=== PATIENT | female | born 1990 | race Caucasian/White ===

== ENCOUNTER 2021-11-28 06:07 | Inpatient (IN) | payer BC, SELFPAY ==
[2021-11-28] VITALS (29 sets, daily range): BP systolic 116–151; BP diastolic 61–97; PULSE 62–108; RESP 16–20; TEMP 36.3–36.7; O2SAT 96–99; BMI 43.6
[2021-11-28 07:55] LABS: Hemoglobin* 12.4 gm/dL (12.0-16.0)
[2021-11-28] MEDS: LACTATED RINGERS 1000 ML 1,000 ML 125 ML IV ×2 (08:01→15:50)
[2021-11-28] MEDS: OXYTOCIN 30 unit/500 ML in NS 30 UNIT/500 ML BAG IVPB (08:03)
[2021-11-28 09:10] LABS: SARS PCR* Negative SARS-CoV-2 (Negative)
--- NOTE | 2021-11-28 09:15 | W.PM.LDBA ---
Subjective History of Present Illness Narrative: Patient is being admitted to Labor and Delivery for IOL for diet controlled GDM with poor glycemic control.? She is a 31 year old at 39 Weeks, 2 Days gestation.? Her full history and physical was dictated by Dr. KEBEDE on 11/21/2021.? Please see this for details.? G1, P0. EDC based on ultrasound : [place]. Baby: Boy Neymar 1. Achieved with letrozole; h/o PCOS: Assumed GDM (see 3hr GTT) * On metformin. Discontinued on 05/31/21. * Early 1hr GTT at 20 wks 07/15/21: 110 * 28 wk 1h GTT 09/16/2021: 176 * 3 hr GTT: 09/20/21 F 83 (70-95), 1hr 180 (70-180), 2hr 182 (70-155), 3hr 86(70-95) * 09/30/2021: Nutrition referral, lancets, glucometer, blood sugar measuring strips. * USN 32wks: 10/14/2021: Vtx. SDP 7.1cm. EFW 2053gm, 4 lb 8 oz, 66%. BPD 78%, HC 57%, AC 84%, FL 23%. * ultrasound for EFW at 36 weeks 11/11/21: Vtx. SDP 6.2cm. EFW 2874 g, 6 lb 5 oz, 57%. BPD 56%, HC 66%, AC 79%, FL 12%. 2. Hypothyroidism: 50 mcg levothyroxine daily 04/30: TSH 2.03 07/15/2021: TSH: 4.53. Increased levothyroxine to 75mcg daily. Recheck TSH w/ reflex FT4 at her 24 week visit. Goal: TSH <2.5. 08/12/2021: TSH 2.620. Increase levothyroxine to 88 mcg daily. Repeat TSH and free T4 at 28 weeks. 09/16/21: TSH 2.53. Continue 88mcg levothyroxine daily. Recheck TSH w/ reflex FT4 at her 6wk pp visit. 3. History of abnormal Pap smears: 2014, colp, no cryotherapy or cone biopsy. last pap smear 09/02/2018; normal Pap at 6wk pp visit. 4. Obesity (BMI 40.5) 04/30: A1C 5.1 Recommended baby ASA 5. Measuring large for dates at 32 weeks. Growth u/s ordered. 57% at 36 weeks OB - H&P: Exam Physical Exam: Vital signs: Temp Pulse Resp BP Pulse Ox 98.1 F 90 16 133/85 99 11/28/21 08:09 11/28/21 08:09 11/28/21 08:09 11/28/21 08:11/28/21 06:34 Narrative: Vitals per EMR? Psychiatric:? Alert and oriented x3? HEENT:? Normocephalic, atraumatic? Neck:? Supple Lungs:? Clear to auscultation bilaterally? Heart:? Regular rate and rhythm, no murmur, rub or gallop? Abdomen:? Soft, nontender, and gravid? Extremities:? No edema or erythema? Pelvic:? SVE: []cm/[]%/-[]? Membrane status:? []? presentation:? []? FHT:? Moderate Variability.? Positive Accels.? No Decels. Baseline [].? Jolly:? Ctx Q[]min? Constitutional: Constitutional: no acute distress Detailed Labor and Delivery Exam: Patient Gravid: yes Dilation (cm): 3 (SVE per RN) Effacement (%): 90 Contraction frequency (min): 5 (5-11 min) Tachysystole: No Contraction intensity: Mild (pt denies feeling) Fetus (Single): Heart Rate Baseline: 150 Monitor Accelerations: Present Monitor Decelerations: None Residential Variability: Moderate (11-25) (6-25) OB - Problem Based A/P Additional Plan (1) : Problem details: See above Status: Acute (2) Gestational diabetes: Status: Acute Plan ASSESSMENT:? at 38.3 weeks gestation? GBS negative? GDM diet controlled. ? ?? PLAN:? 1. Greater than 50% of blood sugars have been elevated in the last week so decision was made for IOL. 2. Reviewed risks and benefits of IOL with Pitocin. Plan for Pitocin IOL was made with the patient in the clinic. Patient agreeable with this plan.?? 3. Candidate for analgesia of choice. Planning unmedicated .?Encouraged movement and position changes. 4. Monitor blood pressures. Consider labs if continue to be elevated.? 5. Anticipate ? 6. Pitocin induction per protocol 7. Monitoring per policy? ? Delivery/Labor/Induction Plan Plan: induction Induction method: per pitocin protocol
--- NOTE | 2021-11-28 13:19 | PM.OBDSVD1 ---
DS: Providers Provider Date of admission: 11/28/21 06:07 Primary care physician: Renuka Camejo MD Admitting Clinician: Kristine Maxwell CNM Attending Physician on discharge: Yolanda Escalona MD DS: Diagnosis Discharge Diagnosis (1) : Status: Acute Problem details: See above (2) Gestational diabetes: Status: Acute Exam Const: Vital Signs, click to edit/add: Vital Signs - 24 hr 11/28/21 06:24 11/28/21 06:28 11/28/21 06:29 Temperature Pulse Rate 107 H Respiratory Rate Blood Pressure 137/92 H Pulse Oximetry 99 99 11/28/21 06:34 11/28/21 07:14 11/28/21 08:09 Temperature 98.1 F Pulse Rate 94 90 Respiratory Rate 16 Blood Pressure 122/81 133/85 Pulse Oximetry 99 11/28/21 09:49 11/28/21 10:01 11/28/21 11:29 Temperature Pulse Rate 90 94 Respiratory Rate Blood Pressure 131/85 135/91 H Pulse Oximetry 96 11/28/21 12:28 Temperature Pulse Rate 89 Respiratory Rate Blood Pressure 130/87 Pulse Oximetry OB - DS: Summary Hospital Course Hospital Course: The patient is a 31 year old G [] P [] at [] weeks gestation that was admitted to the Center on 11/28/21 for []. She had an [uncomplicated/complicated] [vaginal/] delivery. She delivered a viable [male/female] . She is [breast/bottle] feeding. the patient has done well. Time Spent with Patient Time attestation: Total time spent providing and/or coordinating discharge services: Discharge Plan Discharge Date of Admission: 11/28/21 06:07 Attending Physician on Admission: Yolanda Escalona Primary Care Provider: Renuka Camejo Discharge Medications: No Action aspirin 81 mg tablet,chewable 81 mg PO DAILY 0RF cetirizine 10 mg tablet 10 mg PO DAILY 0RF prenat.vits,deneen,anu-nwzj-sanvf Tablet 1 tab PO QDAY 0RF (DME) Diabetic Test Strips Misc See Rx Instructions .ROUTE 0RF Rx Instructions: DISPENSE TEST STRIPS COVERED BY PT INSURANCE. (DME) diabetic supplies, miscellan. Misc See Rx Instructions .ROUTE 0RF Rx Instructions: DISPENSE METER COVERED BY PT INSURANCE. (DME) diabetic supplies, miscellan. Misc See Rx Instructions .ROUTE 0RF Rx Instructions: DISPENSE LANCETS COVERED BY PT INSURANCE. levothyroxine 88 mcg tablet 88 mcg PO DAILY 0RF Referrals: Renuka Camejo MD [Primary Care Provider] -
[2021-11-28 13:24] LABS: Hematocrit 38.4 % (33.0-51.0); Hemoglobin* 12.4 gm/dL (12.0-16.0); Mean Corpuscular HGB Conc 32 gm/dL (32-36); Mean Corpuscular Hemoglobin 28 pg (26-34); Mean Corpuscular Volume 86 fL (80-100); Platelet Count* 308 K/uL (140-440); Red Blood Count 4.49 m/uL (4.00-5.20); White Blood Count* 10.72 K/uL (4.50-11.00)
[2021-11-28 13:35] LABS: Slide Review Reflex No
[2021-11-28 13:52] LABS: Alanine Aminotransferase* 14 U/L (4-35); Aspartate Amino Transferase* 21 U/L (12-35); Blood Urea Nitrogen* 8 mg/dL (5-24); Creatinine* 0.6 mg/dL (0.5-1.5); Est. Creatinine Clearance* 117.31; Estimated Glomerular Filt Rate 122.99
[2021-11-28 14:08] LABS: Glucose, Point-of-Care* 86 mg/dl (60-115)
[2021-11-28 14:10] LABS: Total Protein Urine 12 mg/dL
[2021-11-28] MEDS: ONDANSETRON 2 MG/ML inj 4 MG IV (17:07)
--- NOTE | 2021-11-28 18:10 | PM.OBPNL ---
Pain Control Time Seen by Provider: 16:25 Date Seen: 11/28/21 Pain control: tolerating well Contractions Monitor mode: External Contraction frequency: 5 (5-11 min) Contraction intensity: Mild (pt denies feeling) Pelvic Exam Dilation (cm): 4 Effacement (%): 90 Station: -1 Comments: slight BBOW Fetus (Single) Amniotic Membrane Status: AROM (16:30) status: Category l Assessment and Plan Pitocin rate (mU/min): 11 Assessment: prodromal labor and other (Two elevated BPs >90 systolic geater than 4 hours apart, urine P/C ratio 0.3. Meets criteria for mild pre-eclampsia....) Comments: Amniotomy performed. Continue current management.
--- NOTE | 2021-11-28 18:16 | PM.OBPNL ---
Pain Control Time Seen by Provider: 18:15 Date Seen: 11/28/21 Pain control: tolerating well Comments: Feeling increased discomfort with contractions, breathing through them at bedside. Contractions Monitor mode: External Contraction frequency: 2 (5-11 min) Contraction pattern: Regular Contraction intensity: Moderate (pt denies feeling) Pelvic Exam Dilation (cm): 5 Effacement (%): 100 Station: 0 Comments: IUPC and FSE placed. Fetus (Single) Amniotic Membrane Status: AROM (16:30) status: Category l Assessment and Plan Pitocin rate (mU/min): 11 Assessment: active labor Plan: continue present management
[2021-11-28] MEDS: 5 % DEXTROSE/0.9% SOD CHLORIDE 1,000 ML 125 ML IV (18:28)
[2021-11-28 19:30] LABS: Glucose, Point-of-Care* 87 mg/dl (60-115)
[2021-11-28 19:36] LABS: Glucose, Point-of-Care* 79 mg/dl (60-115)
[2021-11-28 19:37] LABS: Glucose, Point-of-Care* 71 mg/dl (60-115)
[2021-11-28 19:38] LABS: Glucose, Point-of-Care* 88 mg/dl (60-115)
[2021-11-28 21:30] LABS: Glucose, Point-of-Care* 128 mg/dl (60-115)
[2021-11-29] VITALS (28 sets, daily range): BP systolic 115–149; BP diastolic 66–94; PULSE 62–111; RESP 16–20; TEMP 36.4–36.7; O2SAT 97–99
--- NOTE | 2021-11-29 01:24 | PM.OBPRCVD ---
Procedure Delivery date: 11/29/21 Procedure Done: Global Events: GDMA1 and Pre-Eclampsia Induction method: per pitocin protocol Delivery augmentation: rupture of membranes Delivery monitor: external FHT, external uterine, internal FHT and internal uterine Route of delivery: Laceration description: Vaginal - 2nd Degree (Right vaginal sulcus with labial extension) Delivery repair: Chromic (3-0) Estimated blood loss (mL): 100 Anesthesia type: None Disposition: floor [place] Gender: Male presentation: vertex Placental Delivery Description: Spontaneous Cord Description: 3 Vessels and Nuchal Cord (tight, had to be cut on the perineum) OB Vag Delivery Procedures Additional Procedures Procedure Details: Patient is a 33 year-old admitted on Nov 25, 2021 at 23:40 at 39 Weeks, 2 Days gestation for induction of labor secondary to GDMA1. Cervical exam on admission was 3 cm/50 % effaced/-2 station with membranes intact in vertex presentation. Contractions were occasional. heart rate demonstrated baseline 145 bpm with moderate variability, + accelerations, - decelerations; a category 1 tracing. Patient had 2 elevated BPs >90 diastolic greater than 4 hours apart, urine P/C ratio 0.3, meeting criteria for mild pre-eclampsia while in prodromal labor. AROM occurred at 1630 with clear fluid. Labor Analgesia: None Pitocin: Yes Labor onset: 1700 on 11/28/21 Complete: 2253 Pushin, on hands/knees heart tones during second stage were 120-140 baseline with moderate variability. Variable decelerations during the last few contractions before delivery. At 0026 on 11/29/21 a viable male delivered in vertex OA presentation over intact perineum via spontaneous vaginal delivery. there was a tight nuchal cord that had to be doubly clamped and cut on the perineum before delivery of the sholders. Infant was taken to the warmer for evaluation. Nose and mouth were bulb suctioned. weight pending. 5 at 1 minute, 7 at 5 minutes, and 8 at 10 minutes. Shoulder dystocia: no. Nuchal cord: yes. Placenta delivered spontaneously and complete at 0034 with a 3 vessel cord. Mother and infant were stable after delivery. Lacerations: Right vaginal sulcus, 2nd degree, with 1st degree labial extension, repaired with 3-0 chromic. Blood loss: 100 mL. Blood loss measurement type: QBL Sponge and needles counts are correct.
--- NOTE | 2021-11-29 01:44 | PM.OBDSVD1 ---
DS: Providers Provider Date of admission: 11/28/21 06:07 Primary care physician: Renuka Camejo MD Admitting Clinician: Kristine Maxwell CNM Attending Physician on discharge: Yolanda Escalona MD DS: Diagnosis Discharge Diagnosis (1) : Status: Acute Problem details: See above (2) Gestational diabetes: Status: Acute (3) White classification A1 gestational diabetes mellitus (GDM): Status: Acute Problem details: Sub optimally controlled. Advised she check fasting CBG on regular basis. (4) Hypothyroidism: Status: Acute Problem details: Continue current levothyroxine dose, recheck at visit. Exam Const: Vital Signs, click to edit/add: Vital Signs - 24 hr 11/28/21 06:24 11/28/21 06:28 11/28/21 06:29 Temperature Pulse Rate 107 H Respiratory Rate Blood Pressure 137/92 H Blood Pressure [Ri ght Arm] Pulse Oximetry 99 99 11/28/21 06:34 11/28/21 07:14 11/28/21 08:09 Temperature 98.1 F Pulse Rate 94 90 Respiratory Rate 16 Blood Pressure 122/81 133/85 Blood Pressure [Ri ght Arm] Pulse Oximetry 99 11/28/21 09:49 11/28/21 10:01 11/28/21 11:29 Temperature Pulse Rate 90 94 Respiratory Rate Blood Pressure 131/85 135/91 H Blood Pressure [Ri ght Arm] Pulse Oximetry 96 11/28/21 12:28 11/28/21 12:30 11/28/21 13:36 Temperature 97.6 F Pulse Rate 89 82 Respiratory Rate Blood Pressure 130/87 131/85 Blood Pressure [Ri ght Arm] Pulse Oximetry 11/28/21 14:43 11/28/21 14:50 11/28/21 15:57 Temperature 98.1 F Pulse Rate 83 81 Respiratory Rate Blood Pressure 121/80 134/84 Blood Pressure [Ri ght Arm] Pulse Oximetry 11/28/21 16:40 11/28/21 17:21 11/28/21 17:41 Temperature 98 F 97.8 F Pulse Rate 67 Respiratory Rate 16 Blood Pressure 139/85 Blood Pressure [Ri ght Arm] Pulse Oximetry 11/28/21 18:35 11/28/21 18:36 11/28/21 18:40 Temperature 97.9 F Pulse Rate 63 69 Respiratory Rate 20 Blood Pressure 151/85 H 150/97 H Blood Pressure [Ri ght Arm] Pulse Oximetry 11/28/21 19:30 11/28/21 19:33 11/28/21 20:29 Temperature 97.4 F L Pulse Rate 62 64 Respiratory Rate 18 Blood Pressure 150/81 H 133/81 Blood Pressure [Ri ght Arm] Pulse Oximetry 11/28/21 20:32 11/28/21 21:23 11/28/21 21:25 Temperature 97.9 F 97.5 F L Pulse Rate 70 Respiratory Rate 18 Blood Pressure 142/86 H Blood Pressure [Ri ght Arm] Pulse Oximetry 11/28/21 22:39 11/28/21 22:43 11/29/21 00:00 Temperature 98 F 98 F Pulse Rate 67 Respiratory Rate 18 20 Blood Pressure 116/61 Blood Pressure [Ri ght Arm] Pulse Oximetry 11/29/21 00:07 11/29/21 00:35 11/29/21 00:37 Temperature 97.9 F Pulse Rate 111 H 76 Respiratory Rate 20 Blood Pressure 132/66 149/75 H Blood Pressure [Ri ght Arm] 149/75 H Pulse Oximetry 11/29/21 00:50 11/29/21 01:05 11/29/21 01:20 Temperature 97.9 F Pulse Rate 84 77 75 Respiratory Rate 20 18 16 Blood Pressure 143/67 H 149/70 H 133/67 Blood Pressure [Ri ght Arm] 143/67 H 149/70 H 133/67 Pulse Oximetry 11/29/21 01:35 Temperature Pulse Rate 73 Respiratory Rate Blood Pressure 143/71 H Blood Pressure [Ri ght Arm] Pulse Oximetry OB - DS: Summary Hospital Course Hospital Course: The patient is a 31 year old G [] P [] at [] weeks gestation that was admitted to the Center on 11/28/21 for []. She had an [uncomplicated/complicated] [vaginal/] delivery. She delivered a viable [male/female] infant. She is [breast/bottle] feeding. the patient has done well. Gender: Male Time Spent with Patient Time attestation: Total time spent providing and/or coordinating discharge services: Discharge Plan Discharge Disposition: Home, Self-Care Date of Admission: 11/28/21 06:07 Attending Provider on Discharge: Kyle Dominguez Primary Care Provider: Renuka Camejo Condition: Stable Anticipated Discharge Date/Time: 12/01/21 12:12 Discharge Medications: New ibuprofen 600 mg Tablet 600 mg PO Q6H PRNQty: 30 0RF Continued cetirizine 10 mg tablet 10 mg PO DAILY 0RF prenat.vits,deneen,usj-wdwe-[id number] Tablet 1 tab PO QDAY 0RF levothyroxine 88 mcg tablet 88 mcg PO DAILY 0RF Discontinued aspirin 81 mg tablet,chewable 81 mg PO DAILY 0RF No Action (DME) Diabetic Test Strips Misc See Rx Instructions .ROUTE 0RF Rx Instructions: DISPENSE TEST STRIPS COVERED BY PT INSURANCE. (DME) diabetic supplies, miscellan. Misc See Rx Instructions .ROUTE 0RF Rx Instructions: DISPENSE METER COVERED BY PT INSURANCE. (DME) diabetic supplies, miscellan. Misc See Rx Instructions .ROUTE 0RF Rx Instructions: DISPENSE LANCETS COVERED BY PT INSURANCE. Discharge Orders: Discharge Order (Routine); Ordered 12/01/21 Ordered By: Kyle Dominguez Patient Education: OB Vaginal/Breast Feeding Activity Level: No Restrictions Discharge Diet: Regular Follow Up Appointments: Renuka Camejo MD [Primary Care Provider] - (Follow up at 2 weeks and again at 6 weeks in the [facility] - call [phone] to make appointments ) Forms: [email or web address] Inst[facility]
[2021-11-29] MEDS: LIDOCAINE 1 % PF 30 ML INJECTION (03:34)
[2021-11-29] MEDS: ACETAMINOPHEN 500 MG TABLET 1000 MG PO ×4 (04:35→23:01)
[2021-11-29 06:11] LABS: Glucose, Point-of-Care* 114 mg/dl (60-115)
[2021-11-29] MEDS: IBUPROFEN 600 MG TABLET PO ×3 (08:10→20:27)
[2021-11-29] MEDS: LEVOTHYROXINE 88 MCG TABLET PO (09:37)
[2021-11-29] MEDS: DOCUSATE SODIUM 100 MG CAPSULE PO (10:10)
[2021-11-30] VITALS (10 sets, daily range): BP systolic 122–131; BP diastolic 85–88; PULSE 75–95; RESP 16–18; TEMP 36.5–36.6; O2SAT 96–97
[2021-11-30] MEDS: IBUPROFEN 600 MG TABLET PO ×4 (02:41→23:26)
[2021-11-30 06:43] LABS: Glucose, Point-of-Care* 78 mg/dl (60-115)
[2021-11-30 07:17] LABS: Hemoglobin* 10.3 gm/dL (12.0-16.0)
[2021-11-30] MEDS: CETIRIZINE HCL 10 MG TABLET PO ×2 (07:18→19:56)
[2021-11-30] MEDS: ACETAMINOPHEN 500 MG TABLET 1000 MG PO ×3 (08:01→20:09)
[2021-11-30] MEDS: DOCUSATE SODIUM 100 MG CAPSULE PO (08:04)
[2021-11-30] MEDS: LEVOTHYROXINE 88 MCG TABLET PO (08:04)
--- NOTE | 2021-11-30 10:28 | PM.OBPNVD1 ---
OB - PN:Subj Subjective Time Seen by Provider: 10:28 Date Seen: 11/30/21 Interval history: Jennifer is PPD 1 from vaginal of 39 week 2 day male , after induction of labor for GDM A1. Second degree vaginal /right labial laceration repaired. EBL 100. , she feels well. Pain is controlled with ibuprofen and occasional acetaminophen. Lochia is decreasing, and without clots. She is voiding normally. Normal bowel activity. Her son is latching well. OB - PN: Obj Exam Physical Exam: Vital signs: Temp Pulse Resp BP Pulse Ox 97.7 F 84 16 122/88 96 11/30/21 08:01 11/30/21 07:58 11/30/21 07:58 11/30/21 07:58 11/30/21 07:58 Constitutional: Constitutional: no acute distress Routine Respiratory Exam: Comments: Normal respiratory effort. No cough or wheezing. Routine Cardiovascular Exam: Comments: Regular rate. SDPs 110s- 120s; DBPs 70s-80s. minimal generalized edema. Routine Abdominal Exam: Comments: Obese. Fundus firm 2cm above umbilicus. Routine Neurological Exam: Neurological: Present alert, moving all extremities and normal speech Routine Psychiatric Exam: Psychiatric: Present normal affect, normal thought process and cooperative OB - PN: Obj Data Labs Labs: Laboratory Results - last 24 hr 11/30/21 11/30/21 06:05 07:02 Hgb 10.3 L POC Glucose 78 OB - PN: A/P Vaginal Delivery Assessment and Plan (1) : Problem details: See above Status: Acute Assessment and Plan: Recovering well. Ibuprofen 4 times daily. Assist with . (2) Gestational diabetes: Status: Acute Assessment and Plan: Advise long-term weight loss. Plan Plan: routine care Comments: Likely home tomorrow.
[2021-12-01] VITALS: BP 123/87; PULSE 94; RESP 18; TEMP 36.9
[2021-12-01] MEDS: IBUPROFEN 600 MG TABLET PO ×2 (06:37→13:11)
[2021-12-01] MEDS: LEVOTHYROXINE 88 MCG TABLET PO (07:28)
[2021-12-01 07:50] VITALS: BP 127/86; PULSE 75; RESP 16; TEMP 36.7; O2SAT 97
[2021-12-01] MEDS: ACETAMINOPHEN 500 MG TABLET 1000 MG PO (11:35)
--- NOTE | 2021-12-01 12:45 | PM.OBDSVD1 ---
DS: Providers Provider Time Seen by Provider: 12:45 Date Seen: 12/01/21 Date of admission: 11/28/21 06:07 Primary care physician: Renuka Camejo MD Admitting Clinician: Kristine Maxwell CNM Attending Physician on discharge: Yolanda Escalona MD Date of Discharge: 12/01/21 DS: Diagnosis Discharge Diagnosis (1) White classification A1 gestational diabetes mellitus (GDM): Status: Acute Problem details: Sub optimally controlled. Advised she check fasting CBG on regular basis. (2) Hypothyroidism: Status: Acute Problem details: Continue current levothyroxine dose, recheck at visit. DS: Medications Discharge Medications Other Medication Instructions: OTC ibuprofen, acetaminophen, pramoxine foam, lanolin. Exam Const: Vital Signs, click to edit/add: Vital Signs - 24 hr 11/30/21 15:10 11/30/21 16:46 11/30/21 16:54 Temperature 97.7 F 97.7 F 97.7 F Pulse Rate [Pulse Oximeter] 95 Respiratory Rate 16 Blood Pressure [Ri ght Arm] 123/86 Pulse Oximetry 97 11/30/21 19:57 12/01/21 00:00 12/01/21 07:50 Temperature 97.7 F 98.5 F 98.1 F Pulse Rate [Pulse Oximeter] 92 94 75 Respiratory Rate 18 18 16 Blood Pressure [Ri ght Arm] 131/85 123/87 127/86 Pulse Oximetry 97 97 Documenting provider has reviewed patient's vital signs: yes Common normals: no apparent distress and alert Nutritional appearance: obese Eye: General eye: other (bilateral conjunctiva with apparent blood) Resp: Common normals: normal respiratory effort and no use of accessory muscles Cardio: Common normals: regular rate and regular rhythm Rate: regular rate Rhythm: regular rhythm GI: Common normals: soft to palpation and non-tender Palpation: soft Extremity: Common normals: normal to inspection and no calf tenderness Neuro: Common normals: moves all extremities and no focal motor deficits Sensorium/orientation: alert Psych: Common normals: mental status grossly normal and affect normal OB - DS: Summary Hospital Course Hospital Course: Eve is a 31 year old G 1 who was admitted to the [facility] on 11/28/21 for IOL for suboptimally controlled GDMA1. She had an uncomplicated vaginal delivery with EBL 100. She delivered a viable male infant who is . the patient has done well. Peripartum Data Laceration description: Vaginal - 2nd Degree (right sulcus, extending to labium) complications: none Gender: Male (Neymar) Discharge Plan: Home Time Spent with Patient Time attestation: Total time spent providing and/or coordinating discharge services: Time spent: Greater than 30 minutes Discharge Plan Discharge Disposition: Home, Self-Care Date of Admission: 11/28/21 06:07 Attending Provider on Discharge: Kyle Dominguez Primary Care Provider: Renuka Camejo Condition: Stable Anticipated Discharge Date/Time: 12/01/21 12:12 Discharge Medications: New ibuprofen 600 mg Tablet 600 mg PO Q6H PRNQty: 30 0RF Continued cetirizine 10 mg tablet 10 mg PO DAILY 0RF prenat.vits,deneen,cgr-wvtk-gvwje Tablet 1 tab PO QDAY 0RF levothyroxine 88 mcg tablet 88 mcg PO DAILY 0RF Discontinued aspirin 81 mg tablet,chewable 81 mg PO DAILY 0RF No Action (DME) Diabetic Test Strips Misc See Rx Instructions .ROUTE 0RF Rx Instructions: DISPENSE TEST STRIPS COVERED BY PT INSURANCE. (DME) diabetic supplies, miscellan. Misc See Rx Instructions .ROUTE 0RF Rx Instructions: DISPENSE METER COVERED BY PT INSURANCE. (DME) diabetic supplies, miscellan. Misc See Rx Instructions .ROUTE 0RF Rx Instructions: DISPENSE LANCETS COVERED BY PT INSURANCE. Discharge Orders: Discharge Order (Routine); Ordered 12/01/21 Ordered By: Kyle Dominguez Patient Education: OB Vaginal/Breast Feeding Activity Level: No Restrictions Discharge Diet: Regular Follow Up Appointments: Renuka Camejo MD [Primary Care Provider] - Forms: [facility] Info Instructions
== END 2021-12-01 15:45 | disposition home or self-care (01) | DRG 560 ==
PROVIDERS: Advanced Practice Midwife; Admitting Provider Advanced Practice Midwife; PCP Family Medicine; Visit Provider Obstetrics & Gynecology
DX: O24.420 Gestational diabetes mellitus in childbirth, diet controlled (principal); O14.04 Mild to moderate pre-eclampsia, complicating childbirth; O70.1 Second degree perineal laceration during delivery; O99.284 Endocrine, nutritional and metabolic diseases complicating childbirth; E03.9 Hypothyroidism, unspecified; O99.214 Obesity complicating childbirth; E66.9 Obesity, unspecified; Z37.0 Single live birth; Z3A.39 39 weeks gestation of pregnancy
CPT/HCPCS: 36415; 82565; 82947; 84156; 84450; 84460; 84520; 85018; 85027; 86850; 86900; 86901; 87635; 88307; A9270; J2001; J2405; J7042; J7120

== ENCOUNTER 2022-01-03 15:03 | Outpatient (CLI) | payer BC, SELFPAY ==
[2022-01-03 09:06] LABS: Glucose Fasting Check 98 mg/dl (60-115)
[2022-01-03 13:47] LABS: Glucose 2 Hour 113 mg/dl (70-95)
[2022-01-03 13:47] LABS: Glucose Fasting 97 mg/dl (70-95)
== END 2022-01-03 15:04 | disposition home or self-care (01) ==
PROVIDERS: PCP Family Medicine; Visit Provider Registered Nurse
DX: O24.419 Gestational diabetes mellitus in pregnancy, unspecified control (principal)
CPT/HCPCS: 82947; 82950

== ENCOUNTER 2022-01-08 12:16 | Outpatient (CLI) | payer BC, SELFPAY ==
[2022-01-08 17:41] LABS: TSH With Reflex to FT4* 0.443 uIU/mL (0.270-4.200)
== END 2022-01-08 12:17 | disposition home or self-care (01) ==
LOC: NFLDREF 12:17
PROVIDERS: PCP Family Medicine; Visit Provider Registered Nurse
DX: Z39.2 Encounter for routine postpartum follow-up (principal)
CPT/HCPCS: 84443

== ENCOUNTER 2022-02-06 08:59 | Outpatient (CLI) | payer BC, SELFPAY ==
[2022-02-06 10:15] LABS: Albumin* 4.5 g/dL (3.3-5.0)
[2022-02-06 10:16] LABS: Chloride* 105 mmol/L (96-114); Potassium* 4.6 mmol/L (3.6-5.1); Sodium* 140 mmol/L (135-149)
[2022-02-06 10:18] LABS: Aspartate Amino Transferase* 38 U/L (12-35); Bilirubin Total* 0.4 mg/dL (0.1-1.5); Blood Urea Nitrogen* 15 mg/dL (5-24); Carbon Dioxide* 23 mmol/L (20-32); Cholesterol* 219 mg/dL (90-199); Creatinine* 0.6 mg/dL (0.5-1.5); Estimated Glomerular Filt Rate 123 ml/min; Total Protein* 7.5 g/dL (6.0-8.3)
[2022-02-06 10:19] LABS: Alanine Aminotransferase* 47 U/L (4-35); Alkaline Phosphatase* 153 U/L (40-150); Calcium* 9.8 mg/dL (8.4-10.6); Glucose* 96 mg/dL (60-115); HDL Cholesterol* 54 mg/dL (>=50); LDL Cholesterol Calculated 144 mg/dL (<100); Triglycerides* 106 mg/dL (40-149)
[2022-02-06 10:44] LABS: TSH With Reflex to FT4* 0.201 uIU/mL (0.270-4.200)
[2022-02-06 11:17] LABS: Free T4 Free Thyroxine* 1.14 ng/dL (0.70-1.85)
== END 2022-02-06 09:00 | disposition home or self-care (01) ==
PROVIDERS: PCP Family Medicine; Visit Provider Family Medicine
DX: Z01.419 Encounter for gynecological examination (general) (routine) without abnormal findings (principal); E03.9 Hypothyroidism, unspecified; E28.2 Polycystic ovarian syndrome; D64.9 Anemia, unspecified; E66.01 Morbid (severe) obesity due to excess calories; Z68.41 Body mass index [BMI] 40.0-44.9, adult; Z13.6 Encounter for screening for cardiovascular disorders
CPT/HCPCS: 80053; 80061; 84439; 84443

== ENCOUNTER 2022-05-24 14:18 | Emergency (ER) | payer BC, SELFPAY ==
[2022-05-24 14:27] VITALS: BP 130/85; PULSE 89; RESP 12; TEMP 36.6; O2SAT 98; BMI 40.3
--- NOTE | 2022-05-24 14:49 | ED.NURSE ---
Ice pack provided. Pt reports decrease in pain.
--- NOTE | 2022-05-24 14:53 | ED.GENADULT ---
HPI - General Adult General Chief complaint: Burn/Smoke Inhalation Stated complaint: Burned hand Time Seen by Provider: 05/24/22 14:45 Source: patient History of Present Illness HPI narrative: Patient is a 31-year-old woman who was cleaning baby bottles with boiling water. Hot water spilled on the palm of her right hand. She was advised by the nurse line to come. She has the burn about the size of a quarter on the palm of her right hand at the base of her 4th and 5th fingers. She complains of pain in that area. No blistering. No other complaints. Immunizations up-to-date. Related Data Home Medications Medication Instructions Recorded Confirmed cetirizine 10 mg tablet 10 mg PO DAILY 11/27/21 05/24/22 prenat.vits,deneen,vex-scgm-ibpcf 1 tab PO QDAY 11/27/21 05/24/22 Previous Rx's Medication Instructions Recorded levothyroxine 88 mcg tablet 88 mcg PO QDAY #90 tabs 01/08/22 Allergies Allergy/AdvReac Type Severity Reaction Status Date / Time azithromycin Allergy Severe Hives, Verified 04/17/22 09:03 nausea/vomiting pineapple Allergy Severe Oral/face Verified 04/17/22 09:03 swelling with hives strawberry Allergy Mild Hives Verified 04/17/22 09:03 green pepper Allergy Verified 04/17/22 09:03 Sulfa (Sulfonamide Allergy Verified 04/17/22 09:03 Antibiotics) Celery Oil Allergy Unknown Uncoded 04/17/22 09:03 PFSH PFSH Medical History Acne Dysmenorrhea Female infertility associated with anovulation Gestational diabetes Glucose intolerance History of pre-eclampsia Hypothyroidism Morbid obesity with body mass index (BMI) of 40.0 to 44.9 in adult Pain of female symphysis pubis Vaginal dryness Surgical History No history of previous surgery Family History Mother Long COVID Type 2 diabetes mellitus Anxiety disorder Maternal Grandmother Anxiety disorder Father COPD (chronic obstructive pulmonary disease) Other Lung cancer Social History Narrative: , 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 Extremities: Examination of the right hand shows a 1st degree burn, again approximately the size of a quarter. I do not see any blistering at this time. No deeper aguilar. Remainder of the hand is normal. Skin: Warm dry well perfused. No other injuries. Const: Vital Signs, click to edit/add: Vital Signs - 24 hr 05/24/22 14:27 Temperature 97.9 F Pulse Rate [Pulse Oximeter] 89 Respiratory Rate 12 Blood Pressure [Ri ght Upper Arm] 130/85 Pulse Oximetry 98 Oxygen Delivery Me thod Room Air Documenting provider has reviewed patient's vital signs: yes Course Course Hospital Course: At this time, patient has a superficial burn on the palm of her hand. No circumferential or finger aguilar. Advised that it still could potentially blister and that that would do note that this is a second-degree burn verses 1st degree. We discussed the difference. Advised that both will heal without scarring. We will place a dressing on this for her. Routine wound care. Return for signs of infection. Ibuprofen and/or Tylenol as needed for pain. Return for signs of infection. Vital Signs Vital signs: Initial Vital Signs Temperature 97.9 F 05/24/22 14:27 Temperature Source Temporal Artery Scan 05/24/22 14:27 Pulse Rate 89 05/24/22 14:27 Pulse Rhythm 05/24/22 14:27 Respiratory Rate 12 05/24/22 14:27 Blood Pressure 130/85 05/24/22 14:27 Blood Pressure Mean 100 05/24/22 14:27 Blood Pressure Position Sitting 05/24/22 14:27 Pulse Oximetry 98 05/24/22 14:27 Oxygen Delivery Method 05/24/22 14:27 Vital Signs Temperature 97.9 F 05/24/22 14:27 Pulse Rate 89 05/24/22 14:27 Respiratory Rate 12 05/24/22 14:27 Blood Pressure 130/85 05/24/22 14:27 Pulse Oximetry 98 05/24/22 14:27 Oxygen Delivery Method 05/24/22 14:27 Temperature 97.9 F 05/24/22 14:27 Pulse Rate 89 05/24/22 14:27 Respiratory Rate 12 05/24/22 14:27 Blood Pressure 130/85 05/24/22 14:27 Pulse Oximetry 98 05/24/22 14:27 Oxygen Delivery Method 05/24/22 14:27 Discharge Plan Discharge Clinical Impression: First degree burn of palm of right hand Patient Disposition: Home, Self-Care Condition: Stable Instructions: Superficial Burn (DC) Additional Instructions: Ibuprofen and/or Tylenol 3 times daily as needed for pain. Routine wound care, return for signs of infection. Prescriptions: No Action cetirizine 10 mg tablet 10 mg PO DAILY prenat.vits,deneen,[id number] Tablet 1 tab PO QDAY levothyroxine 88 mcg tablet 88 mcg PO QDAY Qty: 90 3RF Follow Up/Referrals: Renuka Camejo MD [Primary Care Provider] - Stand Alone Forms: [employer] Info Instructions
[2022-05-24 15:06] VITALS: BP 130/85; PULSE 89; RESP 12; TEMP 36.6
--- NOTE | 2022-05-24 15:06 | ED.NURSE ---
Dressing applied by EDT. Extra dressing supplies provided for dressing changes through holiday weekend.
== END 2022-05-24 15:07 | disposition home or self-care (01) ==
LOC: ED 14:57
PROVIDERS: Emergency Provider Emergency Medicine; PCP Family Medicine
DX: T23.151A Burn of first degree of right palm, initial encounter (principal); X12.XXXA Contact with other hot fluids, initial encounter
CPT/HCPCS: 99282; 99283

== ENCOUNTER 2022-08-04 07:30 | Outpatient (CLI) | payer BC, SELFPAY | END 2022-08-04 07:31 | disposition home or self-care (01) | LOC: NFLDREF 08-08 09:38 | PROVIDERS: PCP Family Medicine; Visit Provider Family Medicine | DX: R73.9 Hyperglycemia, unspecified (principal); E78.5 Hyperlipidemia, unspecified; R79.89 Other specified abnormal findings of blood chemistry; E03.9 Hypothyroidism, unspecified; E66.01 Morbid (severe) obesity due to excess calories | CPT/HCPCS: 80053; 80061; 84443 ==

== ENCOUNTER 2022-10-08 08:00 | Outpatient (RCR) | payer BC, SELFPAY | END 2023-01-09 09:59 | disposition home or self-care (01) | PROVIDERS: PCP Family Medicine; Visit Provider Obstetrics & Gynecology | DX: N94.9 Unspecified condition associated with female genital organs and menstrual cycle (principal); Z51.89 Encounter for other specified aftercare | CPT/HCPCS: 97110; 97112; 97140; 97162; 97535 ==

== ENCOUNTER 2023-02-03 07:35 | Outpatient (CLI) | payer BC, SELFPAY | END 2023-02-03 07:36 | disposition home or self-care (01) | LOC: NFLDREF 10:00 | PROVIDERS: PCP Family Medicine; Referring Provider Family Medicine; Visit Provider Family Medicine | DX: E03.9 Hypothyroidism, unspecified (principal); E78.5 Hyperlipidemia, unspecified | CPT/HCPCS: 80053; 80061; 84443 ==

== ENCOUNTER 2023-08-27 08:33 | Outpatient (CLI) | payer BC, SELFPAY | END 2023-08-27 08:34 | disposition home or self-care (01) | LOC: FRMREF 08:34 | PROVIDERS: PCP Family Medicine; Visit Provider Registered Nurse | DX: E03.9 Hypothyroidism, unspecified (principal); F32.A Depression, unspecified; F41.9 Anxiety disorder, unspecified; N93.9 Abnormal uterine and vaginal bleeding, unspecified | CPT/HCPCS: 84443 ==

== ENCOUNTER 2023-09-01 07:40 | Outpatient (CLI) | payer BC, SELFPAY | END 2023-09-01 07:41 | disposition home or self-care (01) | LOC: NFLDREF 17:22 | PROVIDERS: PCP Family Medicine; Referring Provider Family Medicine; Visit Provider Family Medicine | DX: E78.5 Hyperlipidemia, unspecified (principal) | CPT/HCPCS: 80061 ==

== ENCOUNTER 2024-03-02 08:34 | Outpatient (CLI) | payer BC, SELFPAY | END 2024-03-02 08:35 | disposition home or self-care (01) | LOC: FRMREF 08:35 | PROVIDERS: PCP Family Medicine; Visit Provider Obstetrics & Gynecology | DX: Z01.419 Encounter for gynecological examination (general) (routine) without abnormal findings (principal); E28.2 Polycystic ovarian syndrome; R73.03 Prediabetes; E03.9 Hypothyroidism, unspecified | CPT/HCPCS: 80053 ==

== ENCOUNTER 2024-04-22 08:06 | Outpatient (CLI) | payer BC, SELFPAY | END 2024-04-22 08:07 | disposition home or self-care (01) | LOC: NFLDREF 04-24 14:25 | PROVIDERS: PCP Family Medicine; Referring Provider Family Medicine; Visit Provider Obstetrics & Gynecology | DX: R74.01 Elevation of levels of liver transaminase levels (principal) | CPT/HCPCS: 84450 ==

== ENCOUNTER 2024-07-05 07:52 | Outpatient (CLI) | payer BC, SELFPAY | END 2024-07-05 07:53 | disposition home or self-care (01) | LOC: NFLDREF 07-06 02:24 | PROVIDERS: PCP Family Medicine; Referring Provider Family Medicine; Visit Provider Family Medicine | DX: R73.03 Prediabetes (principal); E78.5 Hyperlipidemia, unspecified; E03.9 Hypothyroidism, unspecified | CPT/HCPCS: 80053; 80061; 84443 ==

== ENCOUNTER 2024-10-06 08:31 | Outpatient (RCR) | payer BC, SELFPAY | END 2025-02-03 23:59 | disposition home or self-care (01) | PROVIDERS: PCP Family Medicine; Visit Provider Family Medicine | DX: H81.13 Benign paroxysmal vertigo, bilateral (principal); Z51.89 Encounter for other specified aftercare | CPT/HCPCS: 97162 ==

== ENCOUNTER 2024-10-10 16:16 | Outpatient (CLI) | payer BC, SELFPAY | END 2024-10-10 16:17 | disposition home or self-care (01) | LOC: NFLDREF 10-18 23:12 | PROVIDERS: PCP Family Medicine; Referring Provider Family Medicine; Visit Provider Family Medicine | DX: R79.89 Other specified abnormal findings of blood chemistry (principal); R73.03 Prediabetes; E55.9 Vitamin D deficiency, unspecified | CPT/HCPCS: 80053; 82306 ==

== ENCOUNTER 2025-01-09 07:10 | Outpatient (CLI) | payer BC, SELFPAY ==
--- NOTE | 2025-01-09 07:15 | CRLHL7_ITS ---
For Patients: As a result of the Cures Act, medical imaging exams and procedure reports are released immediately into your electronic medical record. You may view this report before your referring provider. If you have questions, please contact your health care provider. OB ULTRASOUND LESS THAN 14 WEEKS, 01/09/2025 CLINICAL HISTORY: Dating and viability. COMPARISON: None. TECHNIQUE: Real time loza scale imaging of the fetus was performed. Transvaginal imaging performed. FINDINGS: Imaging: TV. LMP: 11/08/2024 (irregular cycles due to PCOS). TIM by LMP: 08/15/2025. GA: 8 weeks 6 days. CRL: 1.1 cm, 7 weeks 1 day. TIM: 08/27/2025. FHR: 145 bpm. Gest Sac: 2.3 cm, appears WNL. Yolk Sac: 3.8 mm, appears WNL. Right Ovary: 2.6 x 1.7 x 2.3 cm. WNL. Left Ovary: N/V. IMPRESSION: Single living intrauterine measuring 7 weeks 1 day and sonographic due date 08/27/2025. Bebo Rose M.D. Diagnostic Radiologist [email or web address] Transcribed: 10:01 am DW/Dictated by: Bebo Rose MD @ 01/09/2025 8:14:00 AM (Electronically Signed)
== END 2025-01-09 07:11 | disposition home or self-care (01) ==
LOC: US 07:10
PROVIDERS: PCP Family Medicine; Visit Provider Obstetrics & Gynecology
DX: Z34.91 Encounter for supervision of normal pregnancy, unspecified, first trimester (principal); Z3A.01 Less than 8 weeks gestation of pregnancy
CPT/HCPCS: 76817

== ENCOUNTER 2025-01-09 07:46 | Outpatient (CLI) | payer BC, SELFPAY | END 2025-01-09 07:47 | disposition home or self-care (01) | PROVIDERS: PCP Family Medicine; Visit Provider Obstetrics & Gynecology | DX: Z34.91 Encounter for supervision of normal pregnancy, unspecified, first trimester (principal); Z3A.01 Less than 8 weeks gestation of pregnancy | CPT/HCPCS: 76817; 82565; 82570; 83020; 83021; 84156; 84439; 84443; 84450; 84460; 85660; 86140; 86592; 86703; 86704; 86706; 86762; 86787; 86803; 86850; 87086; 87340; 87491; 87591 ==

== ENCOUNTER 2025-02-13 08:40 | Outpatient (CLI) | payer BC, SELFPAY | END 2025-02-13 08:41 | disposition home or self-care (01) | LOC: NFLDREF 13:29 | PROVIDERS: PCP Family Medicine; Referring Provider Family Medicine; Visit Provider Obstetrics & Gynecology | DX: E03.9 Hypothyroidism, unspecified (principal); E55.9 Vitamin D deficiency, unspecified | CPT/HCPCS: 82306; 84443 ==

== ENCOUNTER 2025-04-19 07:46 | Outpatient (CLI) | payer BC, SELFPAY | END 2025-04-19 07:47 | disposition home or self-care (01) | LOC: US 07:47 | PROVIDERS: PCP Family Medicine; Visit Provider Obstetrics & Gynecology | DX: O09.92 Supervision of high risk pregnancy, unspecified, second trimester (principal); O09.522 Supervision of elderly multigravida, second trimester; R73.03 Prediabetes; O99.212 Obesity complicating pregnancy, second trimester; E66.01 Morbid (severe) obesity due to excess calories; Z68.41 Body mass index [BMI] 40.0-44.9, adult; Z3A.21 21 weeks gestation of pregnancy | CPT/HCPCS: 76811 ==

== ENCOUNTER 2025-04-24 09:30 | Outpatient (CLI) | payer BC, SELFPAY | END 2025-04-24 09:31 | disposition home or self-care (01) | LOC: NFLDREF 04-29 17:15 | PROVIDERS: PCP Family Medicine; Referring Provider Family Medicine; Visit Provider Obstetrics & Gynecology | DX: E03.9 Hypothyroidism, unspecified (principal) | CPT/HCPCS: 84443 ==

== ENCOUNTER 2025-05-03 12:11 | Outpatient (CLI) | payer BC, SELFPAY | END 2025-05-03 12:12 | disposition home or self-care (01) | LOC: US 12:12 | PROVIDERS: PCP Family Medicine; Visit Provider Obstetrics & Gynecology | DX: Z36.2 Encounter for other antenatal screening follow-up (principal); Z3A.23 23 weeks gestation of pregnancy | CPT/HCPCS: 76816 ==

== ENCOUNTER 2025-05-22 09:35 | Outpatient (CLI) | payer BC, SELFPAY | END 2025-05-22 09:36 | disposition home or self-care (01) | LOC: NFLDREF 05-27 16:57 | PROVIDERS: PCP Family Medicine; Referring Provider Family Medicine; Visit Provider Obstetrics & Gynecology | DX: Z34.91 Encounter for supervision of normal pregnancy, unspecified, first trimester (principal); E03.9 Hypothyroidism, unspecified | CPT/HCPCS: 84443; 86780 ==

== ENCOUNTER 2025-05-30 08:15 | Outpatient (CLI) | payer BC, SELFPAY | END 2025-05-30 08:16 | disposition home or self-care (01) | LOC: NFLDREF 06-06 11:36 | PROVIDERS: PCP Family Medicine; Referring Provider Family Medicine; Visit Provider Obstetrics & Gynecology | DX: R73.09 Other abnormal glucose (principal) | CPT/HCPCS: 82951; 82952 ==